=== PATIENT | female | born 1970 | race Caucasian/White ===

== ENCOUNTER 2020-01-26 20:41 | Emergency (ER) | payer MEDICAID, OTHER ==
[~2020-01-26] VITALS: Ht 161 cm; Wt 69.5 kg
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
[2020-01-26 20:50] VITALS: BP 115/82
[2020-01-26] MEDS ORDERED: VARE1TAB22 (21:05)
[2020-01-26] MEDS ORDERED: BACL20TA (21:05)
[2020-01-26] MEDS ORDERED: TRZ50T (21:05)
[2020-01-26] MEDS ORDERED: VENL150C98 (21:05)
[2020-01-26] MEDS ORDERED: OMEP20CA18 (21:05)
--- NOTE | 2020-01-26 21:13 | Diagnostic Imaging Report ---
INDICATION: Cough. No comparison available. FINDINGS: The lungs demonstrate no focal infiltrate or consolidation. There is no effusion. There is no pneumothorax. Heart size and mediastinal contours appear appropriate and pulmonary vascularity appears normal. There do appear to be interstitial changes within the lungs and there is flattening of the diaphragms which may relate to mild air trapping. IMPRESSION: 1. Apparent interstitial changes within lungs with suggestion of some diaphragmatic flattening and air trapping. Correlate for any known history of smoking. 2. No acute superimposed cardiopulmonary process evident. Dictated by: Dictated on workstation # [id number]
== END 2020-01-26 21:09 | disposition home or self-care (01) ==
LOC: ER FS 20:42
DX: R05 Cough (principal); Z88.0 Allergy status to penicillin; Z88.1 Allergy status to other antibiotic agents; Z88.5 Allergy status to narcotic agent; Z88.6 Allergy status to analgesic agent
CPT/HCPCS: 71045; 87430